=== PATIENT | male | born 1965 | race Caucasian/White ===

== ENCOUNTER 2022-09-30 16:01 | Emergency (ER) | payer OTHER ==
[2022-09-30 16:10] VITALS: PULSE 84; RESP 16; TEMP 98.1
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
--- NOTE | 2022-09-30 16:35 | XR ---
EXAMINATION TYPE: XR hand complete LT DATE OF EXAM: 09/30/2022 4:28 PM INDICATION: Patient age:Male; 56 years old; Reason for study: hand injury, swelling; COMPARISON: None TECHNIQUE: Frontal, lateral and oblique views of the left hand were obtained. FINDINGS: Scattered degeneration with joint space narrowing and osteophyte formation are present thro ughout the hand and wrist. There is a deformity to the fifth metacarpal head with cortical step-off. No additional displaced fractures definitively visualized. IMPRESSION: 1. Left fifth metacarpal head deformity correlate for fracture with pain. Alternatively this may rep resent periarticular erosion the setting of arthritis. 2. Multifocal mild osteoporosis.
== END 2022-09-30 18:16 | disposition home or self-care (01) ==
LOC: EC 16:01
DX: S62.307A Unspecified fracture of fifth metacarpal bone, left hand, initial encounter for closed fracture (principal); F17.200 Nicotine dependence, unspecified, uncomplicated; X58.XXXA Exposure to other specified factors, initial encounter
CPT/HCPCS: 99283